=== PATIENT | male | born 1935 | race Caucasian/White ===

== ENCOUNTER 2016-11-21 08:37 | Emergency (ER) | payer OTHER ==
[~2016-11-21] VITALS: Ht 167.6 cm; Wt 80.7 kg
[~2016-11-21 08:37] MED LIST: LEVOTHYROXIN0.075 M1 PO; LOPRESSOR25 MG PO
[2016-11-21 08:48] VITALS: BP 125/76
[2016-11-21] MEDS ORDERED: PRAVACHOL20 MG PO (08:48)
[2016-11-21] MEDS ORDERED: PREDNISONE20 MG PO (08:48)
[2016-11-21] MEDS ORDERED: ULTRAM50 MG PO (08:48)
[2016-11-21] MEDS ORDERED: MOBIC15 MG PO (08:48)
--- NOTE | 2016-11-21 09:45 | NUR ---
Ronak carlson in [facility] - 11/21/16 at 1057 by [email or web address] Patient ambulated to bed 5. RN evaluating patient at bedside.
--- NOTE | 2016-11-21 09:45 | NUR ---
atient ambulated to bed 5. RN evaluating patient at bedside.
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
[2016-11-21] MEDS ORDERED: FAMOTIDINE 20 MG/2 ML VIAL IVP ONE (10:10)
[2016-11-21] MEDS ORDERED: NACL 0.9% 1,000 ML IV SCH (10:10)
[2016-11-21] MEDS ORDERED: diphenhydrAMINE 50 MG/ML VIAL IVP ONE ×2 (10:15→12:20)
[2016-11-21] MEDS ORDERED: DEXAMETHASONE 10 MG/ML VIAL IVP ONE (10:15)
--- NOTE | 2016-11-21 10:22 | NUR ---
Ronak carlson in ED - 11/21/16 at 1110 by [email or web address] Patient ambulated to bed 5. RN evaluating patient at bedside.
--- NOTE | 2016-11-21 11:02 | NUR ---
Patient appears to be resting comfortably in bed. Vital Signs within normal limits. Respirations even and unlabored.WILL CONTINUE TO MONITOR
--- NOTE | 2016-11-21 12:42 | NUR ---
IV removed, catheter intact and site benign. Applied folded 4x4 gauze and tape to stop bleeding.
[2016-11-21 12:45] VITALS: BP 124/72
--- NOTE | 2016-11-21 12:45 | NUR ---
Patient discharged with v/s stable. Written and verbal after care instructions given and explained. Patient alert, oriented and verbalized understanding of instructions. Ambulatory with steady gait. All questions addressed prior to discharge. ID band removed. Patient advised to follow up with PMD. Rx of PREDNISONE 20MG TAB & DIPHENHYDRAMINE HYDROCHLORIDE 50MG given. Patient educated on indication of medication including possible reaction and side effects. Opportunity to ask questions provided and answered.
== END 2016-11-21 12:45 | disposition home or self-care (01) ==
LOC: MED 08:37
DX: T78.40XA Allergy, unspecified, initial encounter (principal); I48.91 Unspecified atrial fibrillation; K21.9 Gastro-esophageal reflux disease without esophagitis; E03.9 Hypothyroidism, unspecified; E78.5 Hyperlipidemia, unspecified; R03.0 Elevated blood-pressure reading, without diagnosis of hypertension; X58.XXXA Exposure to other specified factors, initial encounter
CPT/HCPCS: 36415; 80053; 85025; 96361; 96374; 96375; 96376; 99285; J1100; J1200; J3490; J7030

== ENCOUNTER 2017-01-03 14:28 | Emergency (ER) | payer OTHER ==
[~2017-01-03] VITALS: Ht 165.1 cm; Wt 81.2 kg
[~2017-01-03 14:28] MED LIST changes: +LEVO0.074 PO; -LEVOTHYROXIN0.075 M1 PO; -LOPRESSOR25 MG PO; +MELO15TA11 PO; +PRAV20TA2 PO; +PRED20TA5 PO; +TRAM50TA94 PO
[2017-01-03 15:04] VITALS: BP 137/61
--- NOTE | 2017-01-03 17:00 | NUR ---
PATIENT LEFT WITHOUT BEING SEEN BY DR. IBARRA. NO FURTHER CARE PROVIDED FOR PATIENT.
== END 2017-01-03 17:00 | disposition left against medical advice (07) ==
LOC: MED 14:28
DX: M54.9 Dorsalgia, unspecified (principal); Z53.21 Procedure and treatment not carried out due to patient leaving prior to being seen by health care provider

== ENCOUNTER 2017-01-03 18:03 | Emergency (ER) | payer OTHER ==
[~2017-01-03] VITALS: Ht 165.1 cm; Wt 81.2 kg
[~2017-01-03 18:03] MED LIST changes: -LEVO0.074 PO; +LEVOTHYROXIN0.075 M1 PO; +LOPRESSOR25 MG PO; -MELO15TA11 PO; +MOBIC15 MG PO; -PRAV20TA2 PO; +PRAVACHOL20 MG PO; -PRED20TA5 PO; +PREDNISONE20 MG PO; -TRAM50TA94 PO; +ULTRAM50 MG PO
[2017-01-03 18:23] VITALS: BP 107/61
--- NOTE | 2017-01-03 19:33 | NUR ---
Patient to bed 04.
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
--- NOTE | 2017-01-03 20:30 | NUR ---
Dr. Ojeda evaluating patient at bedside.
[2017-01-03] MEDS ORDERED: HYDROcodone/APAP 10/325 MG 1 TAB TAB PO STA (20:33)
--- NOTE | 2017-01-03 20:48 | NUR ---
US at bedside.
--- NOTE | 2017-01-03 21:40 | NUR ---
Patient going to XRAY via [facility].
--- NOTE | 2017-01-03 21:57 | NUR ---
Patient back from XRAY via [facility].
--- NOTE | 2017-01-03 22:32 | NUR ---
PT ASLEEP AT THIS TIME, NO C/O PAIN AT THIS TIME
[2017-01-03 23:11] VITALS: BP 109/73
== END 2017-01-03 23:11 | disposition home or self-care (01) ==
LOC: MED 18:03
DX: S22.32XD Fracture of one rib, left side, subsequent encounter for fracture with routine healing (principal); R60.0 Localized edema; K21.9 Gastro-esophageal reflux disease without esophagitis; E03.9 Hypothyroidism, unspecified; I48.91 Unspecified atrial fibrillation; Z79.899 Other long term (current) drug therapy; W19.XXXD Unspecified fall, subsequent encounter